=== PATIENT | male | born 1935 ===

== ENCOUNTER 2020-06-16 10:46 | Inpatient (IN) | payer MEDICARE ==
[~2020-06-16 10:46] MED LIST: HUM PROTHROMBIN CPLX IV SCH; [UNRECOGNIZED DRUG - OTHER] IV SCH
[2020-06-16] MEDS ORDERED: Electrolyte Replacement Protocol FS SCH (14:28)
[2020-06-16] MEDS ORDERED: Norepinephrine 8 MG/0.9% NS 250 ML IVPB PRN (14:28)
[2020-06-16] MEDS ORDERED: Sodium Chloride 0.9% 1,000 ML IV SCH (14:30)
[2020-06-16] MEDS ORDERED: Pantoprazole 40 MG VIAL IVP SCH (14:30)
[2020-06-16 14:49] LABS: SARS-CoV-2 NAA Rapid Test Not Detected (NotDetected)
[2020-06-16] MEDS ORDERED: Succinylcholine 200 MG/10 ml SYRINGE FS ONE (14:50)
[2020-06-16] MEDS ORDERED: Lidocaine 1% PF 5 ML VIAL ONE (14:50)
[2020-06-16] MEDS ORDERED: PROPOFOL 200 MG/20 ML VIAL ONE (14:50)
--- NOTE | 2020-06-16 15:16 | HP ---
CHIEF COMPLAINT: Transferred to our facility for management of hemorrhagic shock. HISTORY OF PRESENT ILLNESS: The patient is an 84-year-old male with past medical history of atrial fibrillation, on Eliquis; hypertension; and gout, who was sent to our facility from [facility] after presenting there with GI bleeding. The patient was in his usual state of health until 3 days ago when he started experiencing bloody bowel movements. He reported that his bowel movements were black in the beginning, but then became bloody. He felt weak today and was trying to measure his blood pressure at home, but could not get a number which prompted him to come to the ER. In the ED, the patient was found to be hypotensive and anemic with hemoglobin level of 5. He received 3 units of packed RBCs and started on vasopressors for hypotension. The patient was transferred to our emergency department. Upon arrival, he was on norepinephrine and epinephrine drips. His hemoglobin level was found to be 6. Massive transfusion protocol was initiated and the patient received 6 units of packed RBCs and 6 units of plasma, which led to improvement in his blood pressure. We were able to get him off the vasopressors. A bloody bowel movement was reported in the outside ER facility, but not in our facility. At this time, the patient is alert and oriented and appears to be stable. REVIEW OF SYSTEMS: Negative except as noted in HPI. PAST MEDICAL HISTORY: As noted above. SOCIAL HISTORY: The patient denies alcohol use, smoking, or illicit drug use. FAMILY HISTORY: Noncontributory for his current presentation. ALLERGIES: NO KNOWN DRUG ALLERGIES. PHYSICAL EXAMINATION: GENERAL: The patient is alert and oriented x3. HEENT: Head is normocephalic and atraumatic. Extraocular muscles are intact. NECK: Supple. Central line is present. CHEST: Clear to auscultation bilaterally. CARDIOVASCULAR: Revealed regular rate and rhythm. No murmurs, rubs, or gallops. ABDOMEN: Soft, nontender, nondistended. Bowel sounds are audible and a continuous systolic murmur is heard on the left side of the abdomen. NEUROLOGIC: Nonfocal. ASSESSMENT: 1. Hemorrhagic shock. 2. Acute gastrointestinal bleeding. 3. History of atrial fibrillation, on Eliquis. 4. History of gout. 5. History of Clostridium difficile infection recently. PLAN: The patient will be admitted to the CCU. He received 6 units of packed RBCs and 6 units of plasma and appears to be stable at this time. Continue resuscitation with normal saline at 100 mL/h until his blood pressure further stabilizes. Start Protonix bolus and drip. GI were consulted and the patient will undergo an EGD later today. SCDs for DVT prophylaxis. The patient also received Kcentra to reverse Eliquis. We will hold his home Eliquis at this time. Job ID: [id number] [facility]
[2020-06-16] MEDS ORDERED: Albuterol Sulfate 2.5 mg/0.5 ml Neb NEB SCH (16:00)
[2020-06-16] MEDS ORDERED: Fentanyl 100 MCG/2 ML VIAL ONE (16:04)
[2020-06-16 16:10] VITALS: BMI 35.2
[2020-06-16] MEDS ORDERED: Furosemide 40 MG/4 ML VIAL SLOW IVP SCH (17:00)
[2020-06-16] MEDS ORDERED: Vancomycin HCl 25 MG/ML Oral PO SCH (18:00)
--- NOTE | 2020-06-16 18:32 | CON ---
DATE OF CONSULTATION: REASON FOR CONSULTATION: GI hemorrhage. HISTORY OF PRESENT ILLNESS: Mr. Yates is an 84-year-old who was transferred to this hospital about 11 today from [place] where he presented with GI hemorrhage. Per him and his , who were both poor historians, he began to have some black stools a few days ago. It became more red today. He began to feel bad and went to the ER in [place]. He was found to be tachycardic and hypotensive, given 3 units of blood and placed on Levophed and epinephrine and transferred here. In talking with his , she states he has had 2 episodes like this in the past and was treated in [place], [place]. She is unsure of the diagnosis. She states one of those times, he was just given medicines in his doctor's office, but she does not recall blood transfusions or prior endoscopies. He apparently has had a colonoscopy about 2 years ago she thinks, and she thinks that was normal. In any event, he was on Eliquis reportedly, arrived here and he was in shock. A massive transfusion protocol was begun. It is reported that he received 12 units of blood. He also received Kcentra and 4 units FFP. He was weaned off his pressors. His hemoglobin was 6.9 on arrival here. By the time I saw him, he was stable. The nurses reported he had no bowel movements at all, that was at about 1 o'clock this afternoon. He has been started on a Protonix drip. Admission H and P indicates he received just 6 units of blood and 6 of plasma and that sounds more reasonable, but these records are not available as the computers are all down and the paper records are scattered. He denies any abdominal pain or complaints. PAST MEDICAL HISTORY: Atrial fibrillation, on Eliquis. Other medicines are unknown. His states he had a C. difficile infection recently and was on antibiotics. She does not recall if he still knows or not. She does not think he has been having diarrhea recently. PAST SURGICAL HISTORY: Unknown. SOCIAL HISTORY: Negative for alcohol, drugs, or tobacco. FAMILY HISTORY: Noncontributory. ALLERGIES: NONE KNOWN. PRESENT MEDICATIONS: 1. Furosemide 1 dose 40 mg. 2. Electrolyte replacement protocol. 3. Protonix 80 drip. He is on no IV fluids. PHYSICAL EXAMINATION: VITAL SIGNS: Pulse 74, blood pressure 140/82, and afebrile. T-max 99.2. GENERAL: He is confused. He is oriented to person only. He is in no distress. He is marixa complected. HEENT: Conjunctivae are pink. Sclerae are clear. LUNGS: Noted for rhonchi in the bases. HEART: Regular rate and rhythm. ABDOMEN: Protuberant, soft, nontender. EXTREMITIES: No edema. LABORATORY DATA: COVID negative here. No other labs presently available. ASSESSMENT: 1. Hemorrhagic shock, resolved. 2. Acute gastrointestinal bleed with melena for several days and more red blood today. 3. Status post 6 units of blood. 4. History of recent Clostridium difficile infection. 5. History of gout. RECOMMENDATIONS: 1. EGD now as he is resuscitated. 2. Needs stool for C. difficile. 3. We will get his labs. If he has further bleeding, would consider a CAT scan or lower endoscopy. We will follow along with you. ADDENDUM: He actually received 6 units FFP and 6 units of blood. Comprehensive metabolic profile at the outside facility yesterday was normal except for a BUN of 49 and creatinine of 1.5. Liver function tests normal. Albumin was 2.5 and protein was 4.3. At the outside facility, his hemoglobin was 5.7, white count of 15. INR was 1.6. Medical records from the outside facility indicate he was on allopurinol, amiodarone, Eliquis b.i.d., Cilostazol, colchicine probenecid, furosemide, lisinopril, metoprolol, and oral vancomycin. Medical records indicate he also has gout, hypertension. There are no notations of surgeries. Assessment is unchanged from my initial H and P. Definitely it seems like he is still on vancomycin. We will recheck a C difficile. His white count remains elevated. He has diarrhea. We will need to go ahead and get a CAT scan of his abdomen. It does not appear he has toxic megacolon. His lactic acid was normal at 1.4. It does not appear any troponins were obtained. Presently, he is stable for endoscopy. Job ID: [id number]
[2020-06-16 18:47] LABS: Hemoglobin 9.8 g/dL (14.0-18.0)
[2020-06-16 18:55] LABS: ALT (SGPT) 14 U/L (8-55); AST (SGOT) 23 U/L (5-34); Albumin 1.9 g/dL (3.4-4.8); Alkaline Phosphatase 42 U/L (40-110); Anion Gap 12 mmol/L (10-20); BUN (Urea Nitrogen) 46 mg/dL (8.4-25.7); Bilirubin, Total 0.7 mg/dL (0.2-1.2); Calc. Creatinine Clearance 46 mL/min (70-130); Calcium 6.4 mg/dL (7.8-10.44); Carbon Dioxide 11 mmol/L (23-31); Chloride 121 mmol/L (98-107); Globulin 1.7 g/dL (2.4-3.5); Glucose 181 mg/dL (83-110); Potassium 3.9 mmol/L (3.5-5.1); Protein, Total 3.6 g/dL (5.8-8.1); Sodium 140 mmol/L (136-145)
--- NOTE | 2020-06-16 19:18 | CON ---
DATE OF CONSULTATION: 06/16/2020 CONSULTING PHYSICIAN: Dr. Fields. REASON FOR CONSULTATION: Hypotension. HISTORY OF PRESENT ILLNESS: The patient is an 84-year-old male from [place], who presented there with lower gastrointestinal hemorrhage. Symptoms started about 4 days ago. He initially went to the [place] ER and was hypotensive. He got 3 units of blood there. He was placed on Levophed and epinephrine and subsequently transferred here, although he gets all of his care in [facility]. By the time he got into the ICU where I saw him, he had been weaned down to almost no Levophed. He had received a total of 12 minutes of blood and received Kcentra, 4 units of FFP and some platelets. It was presumed that he would go down for colonoscopy later. PAST MEDICAL HISTORY: 1. Atrial fibrillation, for which he takes Eliquis. 2. C difficile colitis. PAST SURGICAL HISTORY: Unknown. SOCIAL HISTORY: Nonsmoker. Does not consume alcohol. Denies illicit drugs. ALLERGIES: NONE. FAMILY MEDICAL HISTORY: Unremarkable. MEDICATIONS: Furosemide 40 mg daily. REVIEW OF SYSTEMS: Otherwise negative. PHYSICAL EXAMINATION: VITAL SIGNS: Temperature 98.2, pulse 74, respirations 18, blood pressure 130/63. GENERAL: He is awake and alert and in no distress. HEENT: Unremarkable. NECK: No adenopathy or JVD. LUNGS: Clear to auscultation. CARDIAC: S1 and S2. Irregularly irregular. ABDOMEN: Mildly tender to palpation in the lower left quadrant. EXTREMITIES: No clubbing, cyanosis, or edema. LABORATORY DATA: His labs from [place] were reviewed and are listed on the chart. His COVID test here was negative. ASSESSMENT: 1. Lower gastrointestinal bleeding. 2. Hypotension secondary to profound volume loss. PLAN: The patient has been given copious red blood cell transfusion. Additionally, he has been placed on IV Protonix. His H and H will be monitored. We will have to be happy to follow with you. Total time spent, 50 minutes. Job ID: [id number]
[2020-06-16] MEDS: Vancomycin HCl 25 MG/ML Oral PO SCH (19:57)
[2020-06-16 20:37] LABS: Anisocytosis SLIGHT = 6-15 cells (100X) (0-5/hpf); Band 49 % (5-11); Hemoglobin 6.9 g/dL (14.0-18.0); Lymphocytes 1 % (21-51); MDiff Complete? YES; Mean Corpuscular HGB CONC 32.8 g/dL (32.0-36.0); Mean Corpuscular Hemoglobin 30.7 pg (27.0-31.0); Mean Corpuscular Volume 93.5 fL (78.0-98.0); Mean Platelet Volume 7.8 fL (7.4-10.4); Monocytes 3 % (0-10); Neutrophil 47 % (42-75); Platelet Count 181 thou/uL (130-400); Platelet Morphology Comment Appears Adequate; Polychromasia MODERATE = 3-4 cells (100X) (0-2/hpf); RBC Distribution Width 16.2 % (11.5-14.5); Red Blood Cell (RBC) Count 2.24 mill/uL (4.70-6.10); Reflex for Review?? NO; White Blood Cell (WBC) Count 28.5 thou/uL (4.8-10.8)
[2020-06-16] MEDS ORDERED: Latanoprost 0.005% Ophth Soln 2.5 ml Bottle R EYE SCH (21:45)
[2020-06-16] MEDS: metroNIDAZOLE 500 MG in Premix Bag 1 BAG IVPB SCH (21:54)
[2020-06-16 23:46] LABS: Hemoglobin 8.6 g/dL (14.0-18.0)
[2020-06-17] MEDS ORDERED: Norepinephrine 8 MG/0.9% NS 250 ML IVPB PRN (00:05)
[2020-06-17] MEDS: Vancomycin HCl 25 MG/ML Oral PO SCH ×4 (01:16→20:15)
[2020-06-17] MEDS: Sodium Chloride 0.9% 1,000 ML IV SCH ×2 (03:59→08:14)
[2020-06-17] MEDS ORDERED: Pantoprazole 40 MG VIAL IVP SCH (04:00)
[2020-06-17 04:44] LABS: Hemoglobin 8.6 g/dL (14.0-18.0); Mean Corpuscular HGB CONC 34.6 g/dL (32.0-36.0); Mean Corpuscular Volume 89.6 fL (78.0-98.0); Mean Platelet Volume 7.5 fL (7.4-10.4); Platelet Count 95 thou/uL (130-400); RBC Distribution Width 14.7 % (11.5-14.5); Red Blood Cell (RBC) Count 2.79 mill/uL (4.70-6.10)
[2020-06-17 04:45] LABS: Band 14 % (5-11); Eosinophils 1 % (0-10); Lymphocytes 21 % (21-51); MDiff Complete? YES; Monocytes 1 % (0-10); Neutrophil 63 % (42-75); Nucleated RBC 1 % (0); Platelet Morphology Comment Appears Decreased
[2020-06-17 04:49] LABS: ALT (SGPT) 16 U/L (8-55); AST (SGOT) 26 U/L (5-34); Albumin 2.3 g/dL (3.4-4.8); Alkaline Phosphatase 44 U/L (40-110); Anion Gap 10 mmol/L (10-20); BUN (Urea Nitrogen) 44 mg/dL (8.4-25.7); Bilirubin, Total 1.1 mg/dL (0.2-1.2); Calc. Creatinine Clearance 49 mL/min (70-130); Calcium 6.9 mg/dL (7.8-10.44); Carbon Dioxide 17 mmol/L (23-31); Chloride 120 mmol/L (98-107); Globulin 1.7 g/dL (2.4-3.5); Glucose 84 mg/dL (83-110); Potassium 3.2 mmol/L (3.5-5.1); Sodium 144 mmol/L (136-145)
[2020-06-17] MEDS: metroNIDAZOLE 500 MG in Premix Bag 1 BAG IVPB SCH ×3 (05:16→22:59)
[2020-06-17] MEDS ORDERED: Potassium Chloride 40 MEQ in Premix Bag 1 BAG IVPB SCH (06:00)
--- NOTE | 2020-06-17 06:56 | OP ---
DATE OF PROCEDURE: 06/16/2020 PREPROCEDURE DIAGNOSES: 1. Gastrointestinal hemorrhage of unclear etiology. 2. Eliquis reversed. 3. Status post massive transfusion protocol, 6 units here and 3 units at outside facility. Hemoglobin unknown. Off pressors now. Normal INR. POSTPROCEDURE DIAGNOSES: 1. Normal esophagus. 2. Food obscuring the proximal quarter of the stomach in the fundus with food bolus that could not be removed. No blood or oozing from that. 3. Couple of hematin stains in the distal body, but no ulcers on forward or retroflexed views. 4. Normal duodenum with bile to the third portion. RECOMMENDATIONS: 1. Check the C difficile. 2. Get a CAT scan of the abdomen and pelvis as he has a history of C difficile, which he has been treated for before he came in. He does not look toxic, but this needs to be done once we confirm his renal function is normal. 3. Serial hemoglobins and hematocrits. 4. Change PPI to q.12. 5. He will need a colonoscopy at a later date, but not now and not tomorrow. ANESTHESIA: General endotracheal anesthesia. PROCEDURE IN DETAIL: After the patient was informed of the risks, benefits, and possible complications of endoscopy including perforation, bleeding, reaction to medication, and aspiration, informed consent was obtained. The patient was brought to the endoscopy suite, where he was intubated with rapid sequence induction. The endoscope was advanced into the esophagus, stomach, into second and third portions of the duodenum. The esophagus was normal. The stomach was notable for food in the proximal stomach, this could not be mobilized or irrigated away, distending the stomach fully. The GE junction looked normal on retroflexed views. There was no evidence of Ashlyn-Puag tear. There was no evidence of active clot or bleeding. We could not move the food bolus to visualize underneath it. The body of the stomach and antrum were normal. The incisura was normal. Retroflexion in the pylorus was normal. The duodenum was normal to the 4th portion with clear yellow bile. The scope was removed. The patient tolerated the procedure well. There were no complications. Job ID: [id number]
[2020-06-17] MEDS: Pantoprazole 40 MG VIAL IVP SCH ×2 (07:58→20:16)
[2020-06-17] MEDS ORDERED: FLU VACC QS2020-21(65YR UP)/PF 240 MCG/0.7 ML SYRINGE IM ONE (09:00)
--- NOTE | 2020-06-17 10:58 | PRG ---
DATE OF SERVICE: 06/17/2020 SUBJECTIVE: The patient has been hemodynamically stable. He had no significant findings from his colonoscopy. He is off the Levophed drip. OBJECTIVE: HEENT: Unremarkable. NECK: No adenopathy or JVD. LUNGS: Clear. CARDIAC: S1 and S2, regular. ABDOMEN: Soft. EXTREMITIES: No edema. LABORATORY DATA: Sodium 144, potassium 3.2, chloride 120, CO2 of 17, BUN 44, creatinine 1.5, glucose 84. White count 11, hematocrit 25, platelet count 95. ASSESSMENT: 1. Status post massive gastrointestinal bleeding while on Eliquis. 2. Status post massive transfusion. PLAN: The patient has been weaned off the Levophed. He can be transferred to the telemetry floor. No further pulmonary recs. Job ID: [id number]
--- NOTE | 2020-06-17 12:25 | CT ---
CT Abdomen Pelvis W Con HISTORY: Abdominal pain and GI bleed. COMPARISON: None. FINDINGS: Bilateral pleural effusions left slightly larger than right are noted. There is bibasilar a telectatic lung changes seen. The liver and spleen show no focal abnormalities. There is some minimal free fluid adjacent to the li joe and spleen. The pancreas and gallbladder regions are unremarkable. There is no significant periaortic or mesenteric adenopathy. There is some mild gaseous distention of the colon. No wall thic kening. No evidence for pneumatosis. Right and left adrenal glands and right and left kidneys are normal in size. CT of pelvis performed with contrast enhancement: Rock catheter is in place. There is some fluid pre sent within the rectosigmoid colon. No inflammatory change. No free fluid, adenopathy or mass. Review of osseous structures show marked arthritic changes of the spine. IMPRESSION: 1. Mild bilateral pleural effusions with bibasilar atelectasis. 2. No evidence of any colon wall thickening. There is some minimal fat stranding posterior to the lef t colon closer to the level the splenic flexure. This may just represent some fluid within the paracolic gutter as there is also some fluid adjacent to the spleen. No evidence of any colon wall th ickening or diverticular disease in this area.
[2020-06-17 12:35] LABS: CKMB 5.5 ng/mL (0-6.6)
--- NOTE | 2020-06-17 12:53 | PDOC.HOSPP ---
- Subjective Encounter Date: 06/17/20 Subjective: The patient is hemodynamically stable today. - Objective Vital Signs & Weight: Vital Signs (12 hours) Temp Pulse Ox 06/17/20 07:49 100 06/17/20 04:00 98.0 F 06/17/20 02:21 99 Weight Weight 229 lb 11.547 oz Most Recent Monitor Data Heart Rate from ECG 64 NIBP 107/51 NIBP BP-Mean 69 Respiration from ECG 15 SpO2 100 I&O: 06/16/20 06/17/20 06/18/20 06:59 06:59 06:59 Intake Total 995.2 75.2 Output Total 2355 100 Balance -1359.8 -24.8 Result Diagrams: 06/17/20 04:08 06/17/20 04:08 Hospitalist ROS - Medication Medications: Active Medications Generic Name Dose Route Start Last Admin Trade Name Freq PRN Reason Stop Dose Admin Metronidazole 500 mg/ Device 100 mls @ 100 mls/hr 06/16/20 22:00 06/17/20 05:16 IVPB 100 mls Q8HR JUAN Administration Sodium Chloride 1,000 mls @ 75 mls/hr 06/17/20 04:00 06/17/20 08:14 Normal Saline 0.9% IV 1,000 mls .[id number] JUAN Administration Pantoprazole Sodium 40 mg 06/17/20 21:00 06/17/20 07:58 Pantoprazole 40 Mg Vial IVP 40 mg Q12HR JUAN Administration Sodium Chloride 10 ml 06/17/20 09:00 06/17/20 08:00 Flush - Normal Saline 10 Ml Syringe IVF 10 ml Q12HR JUAN Administration Vancomycin HCl 125 mg 06/16/20 20:00 06/17/20 07:59 Vancomycin Hcl 25 Mg/Ml Oral PO 125 mg 0200,0800,1400,2000 JUAN Administration Hospitalist Exam Vitals: Vital Signs (12 hours) Temp Pulse Ox 06/17/20 07:49 100 06/17/20 04:00 98.0 F 06/17/20 02:21 99 Weight Weight 229 lb 11.547 oz Most Recent Monitor Data Heart Rate from ECG 64 NIBP 107/51 NIBP BP-Mean 69 Respiration from ECG 15 SpO2 100 General Appearance: awake alert ENT: normocephalic atraumatic Neck: supple Heart: RRR, no murmur Respiratory: CTAB, no wheezes, no rales Neurological: cranial nerve grossly intact Hosp A/P (1) Hemorrhagic shock Code(s): R57.8 - OTHER SHOCK Status: Acute (2) Anemia due to acute blood loss Code(s): D62 - ACUTE POSTHEMORRHAGIC ANEMIA Status: Acute (3) GI bleeding Code(s): K92.2 - GASTROINTESTINAL HEMORRHAGE, UNSPECIFIED Status: Acute (4) C. difficile colitis Code(s): A04.72 - ENTEROCOLITIS D/T CLOSTRIDIUM DIFFICILE, NOT SPCF RECUR Status: Acute (5) Gout Code(s): M10.9 - GOUT, UNSPECIFIED Status: Acute - Plan Status post transfusion with a total of 9 units of packed RBCs, 6 units of plasma and monitor platelets. H&H currently stable. Status post EGD which did not show any acute bleeding. CT scan of the abdomen and pelvis did not reveal any significant abnormalities. The patient is on metronidazole and oral vancomycin for C. difficile. GI recommended colonoscopy at a later date.
--- NOTE | 2020-06-17 17:21 | PRG ---
DATE OF SERVICE: 06/17/2020 REASON FOR CONSULTATION: Hypotension and GI bleeding. SUBJECTIVE: The patient was admitted to the hospital yesterday with severe hypotension and significant anemia concerning for massive GI blood loss. He subsequently underwent emergent upper endoscopy, which showed retained food within the stomach obscuring the gastric fundus as well as little bit of blood clots within the distal body, but no evidence of GI bleeding in the upper GI tract. Since the upper endoscopy, he has not had any bowel movements at all nor has he had any acute events or problems overnight per nursing staff. The patient does remain confused and what is presumably his baseline demented state. Currently, alert and oriented x2. Otherwise, he denies any nausea, vomiting, fevers, chills, hematemesis, melena, or hematochezia. OBJECTIVE: VITAL SIGNS: Temperature 97.9, pulse 75, blood pressure 125/60, respiratory rate 24, saturating 100% on room air. GENERAL: The patient was lying in bed, in no acute distress. Alert and oriented x2. CARDIOVASCULAR: Regular rate and rhythm. RESPIRATORY: Clear to auscultation bilaterally. ABDOMEN: Normoactive bowel sounds. Soft, nontender, nondistended. EXTREMITIES: No cyanosis, clubbing, or edema. LABORATORY DATA: CBC with a white blood cell count of 11, hemoglobin 8.6, hematocrit 25, platelets 95. Chemistry with a sodium of 144, potassium 3.2, chloride 120, CO2 of 17, BUN 44, creatinine 1.55, glucose 84, AST 26, ALT 16, alkaline phosphatase 44, total bilirubin 1.1. IMAGING DATA: CT scan of the abdomen/pelvis was obtained on June 17, 2020, which showed bilateral pleural effusions as well as a minimal amount of free fluid within the abdomen near the hepatic and splenic flexures. There was mild gaseous distention of the colon, but otherwise no significant abnormalities. He also underwent upper endoscopy on June 16, 2020, which showed normal esophagus, food obscuring the proximal quarter of the stomach in the fundus with inadequate visualization of the underlying mucosa, but no blood or oozing was seen from underneath. Some hematin stains were seen in the distal gastric body, but no evidence of ulcers or erosions that would contribute toward it and the duodenum was completely normal to the third portion. ASSESSMENT AND PLAN: The patient is an 84-year-old male with past medical history of atrial fibrillation, on Eliquis as an outpatient as well as a recent diagnosis of Clostridium difficile infection/colitis, presenting with hemorrhagic anemia possibly from a gastrointestinal bleeding source. Gastrointestinal bleedin. The patient was initially transferred to the hospital from [place] where per chart review, he was having significant gastrointestinal hemorrhage with the appearance of hematochezia/bright red blood per rectum. He was found to be tachycardic and hypotensive in the ER there with subsequent transfer to [facility] for further evaluation. He subsequently underwent massive bleeding infusion protocol and was placed on pressor support, for which, the patient has been weaned off today. He also underwent upper endoscopy yesterday with no clear significant findings of gastrointestinal bleeding during that evaluation. At this time, the origin of his bright red blood per rectum is unknown with a recent colonoscopy performed by an outpatient GI physician in [place] within the last few years that did not show any abnormalities. He does have a slightly downtrending H and H over the last 24 to 48 hours, but per nursing staff, has not had any evidence of clinical overt gastrointestinal bleeding. RECOMMENDATIONS: 1. Would continue to trend his H and H and transfuse as necessary to maintain an H and H of 7/21. 2. Continue to monitor clinically for signs of active GI bleeding. 3. If the patient continues to have a downtrending H and H, I would consider repeat upper endoscopy and colonoscopy for further evaluation. 4. Would continue to avoid any anticoagulation in this patient and/or NSAIDs. Clostridium difficile infection: 1. The patient is presenting with a recent diagnosis of Clostridium difficile colitis, for which, the patient was placed on oral vancomycin. Currently responding to current management. RECOMMENDATIONS: 1. Continue oral vancomycin at the current dosing. We will continue to follow. Please call with any questions. Job ID: [id number]
[2020-06-17] MEDS ORDERED: Pantoprazole 40 MG VIAL ONE (20:13)
[2020-06-17] MEDS: Furosemide 40 MG/4 ML VIAL SLOW IVP SCH (20:15)
[2020-06-17] MEDS: Latanoprost 0.005% Ophth Soln 2.5 ml Bottle R EYE SCH (20:16)
[2020-06-17 22:39] LABS: CKMB 4.6 ng/mL (0-6.6)
[2020-06-18] MEDS: Vancomycin HCl 25 MG/ML Oral PO SCH ×4 (02:35→20:39)
[2020-06-18] MEDS: metroNIDAZOLE 500 MG in Premix Bag 1 BAG IVPB SCH ×2 (05:02→14:36)
[2020-06-18 05:18] LABS: #Eosinphils 0.2 thou/uL (0.0-0.7); #Lymphocytes 1.2 thou/uL (1.20-3.40); #Neutrophils 6.2 thou/uL (1.40-6.50); %Basophils 0.1 % (0.0-1.0); %Eosinophils 2.1 % (0.0-10.0); %Lymphocytes 13.7 % (21.0-51.0); %Monocytes 11.9 % (0.0-10.0); %Neutrophils 72.2 % (42.0-75.0); Hemoglobin 9.5 g/dL (14.0-18.0); Mean Corpuscular HGB CONC 35.4 g/dL (32.0-36.0); Mean Corpuscular Hemoglobin 32.3 pg (27.0-31.0); Mean Corpuscular Volume 91.2 fL (78.0-98.0); Mean Platelet Volume 7.1 fL (7.4-10.4); Platelet Count 96 thou/uL (130-400); RBC Distribution Width 14.7 % (11.5-14.5); Red Blood Cell (RBC) Count 2.93 mill/uL (4.70-6.10); White Blood Cell (WBC) Count 8.6 thou/uL (4.8-10.8)
[2020-06-18 05:28] LABS: ALT (SGPT) 16 U/L (8-55); AST (SGOT) 27 U/L (5-34); Albumin 2.5 g/dL (3.4-4.8); Alkaline Phosphatase 50 U/L (40-110); Anion Gap 11 mmol/L (10-20); BUN (Urea Nitrogen) 30 mg/dL (8.4-25.7); Calc. Creatinine Clearance 80 mL/min (70-130); Calcium 7.4 mg/dL (7.8-10.44); Carbon Dioxide 20 mmol/L (23-31); Chloride 117 mmol/L (98-107); Globulin 1.9 g/dL (2.4-3.5); Glucose 83 mg/dL (83-110); Protein, Total 4.4 g/dL (5.8-8.1); Sodium 145 mmol/L (136-145)
[2020-06-18 06:08] LABS: Potassium 2.9 mmol/L (3.5-5.1)
[2020-06-18] MEDS: Potassium Chloride 20 MEQ TAB PO SCH ×2 (06:34→10:26)
[2020-06-18] MEDS ORDERED: Magnesium 2 GM/50 ML 2 GM in Premix Bag 1 BAG IVPB SCH (07:45)
[2020-06-18] MEDS: Furosemide 40 MG/4 ML VIAL SLOW IVP SCH ×2 (09:22→20:38)
[2020-06-18] MEDS: Pantoprazole 40 MG VIAL IVP SCH (09:22)
[2020-06-18] MEDS ORDERED: Sodium Chloride 0.65% Nasal 44 ML BOT EA NARE PRN (15:31)
[2020-06-18 17:25] LABS: Potassium 3.7 mmol/L (3.5-5.1)
--- NOTE | 2020-06-18 18:28 | PDOC.HOSPP ---
- Subjective Encounter Date: 06/18/20 Subjective: Patient reports he is feeling well. He has no complaints today. - Objective Vital Signs & Weight: Vital Signs (12 hours) Temp Pulse Resp BP BP BP BP 06/18/20 16:06 98.0 F 65 16 143/67 H 06/18/20 13:36 177/78 H 164/75 H 06/18/20 12:00 98.3 F 67 18 149/67 H 06/18/20 08:42 98.2 F 80 20 136/60 06/18/20 08:00 Pulse Ox 06/18/20 16:06 98 06/18/20 13:36 06/18/20 12:00 97 06/18/20 08:42 100 06/18/20 08:00 100 Weight Weight 233 lb 6.4 oz Most Recent Monitor Data Heart Rate from ECG 67 NIBP 140/59 NIBP BP-Mean 86 Respiration from ECG 24 SpO2 100 I&O: 06/17/20 06/18/20 06/19/20 06:59 06:59 06:59 Intake Total 995.2 4790.8 960 Output Total 2355 3700 2150 Balance -1359.8 1090.8 -1190 Result Diagrams: 06/18/20 04:49 06/18/20 17:00 Hospitalist ROS - Medication Medications: Active Medications Generic Name Dose Route Start Last Admin Trade Name Freq PRN Reason Stop Dose Admin Furosemide 40 mg 06/17/20 21:00 06/18/20 09:22 Furosemide 40 Mg/4 Ml Vial SLOW IVP 40 mg BID JUAN Administration Metronidazole 500 mg/ Device 100 mls @ 100 mls/hr 06/16/20 22:00 06/18/20 14:36 IVPB 100 mls Q8HR JUAN Administration Latanoprost 1 drop 06/17/20 21:00 06/17/20 20:16 Latanoprost 0.005% Ophth Soln 2.5 Ml Bottle R EYE 1 drop HS JUAN Administration Pantoprazole Sodium 40 mg 06/17/20 21:00 06/18/20 09:22 Pantoprazole 40 Mg Vial IVP 40 mg Q12HR JUAN Administration Sodium Chloride 10 ml 06/17/20 09:00 06/18/20 09:23 Flush - Normal Saline 10 Ml Syringe IVF 10 ml Q12HR JUAN Administration Sodium Chloride 1 ml 06/18/20 15:31 06/18/20 16:08 Sodium Chloride 0.65% Nasal 44 Ml Bot EA NARE 1 spray TIDPRN PRN Administration Nasal Congestion Vancomycin HCl 125 mg 06/16/20 20:00 06/18/20 14:52 Vancomycin Hcl 25 Mg/Ml Oral PO Not Given 0200,0800,1400,2000 [facility] Hospitalist Exam Vitals: Vital Signs (12 hours) Temp Pulse Resp BP BP BP BP 06/18/20 16:06 98.0 F 65 16 143/67 H 06/18/20 13:36 177/78 H 164/75 H 06/18/20 12:00 98.3 F 67 18 149/67 H 06/18/20 08:42 98.2 F 80 20 136/60 06/18/20 08:00 Pulse Ox 06/18/20 16:06 98 06/18/20 13:36 06/18/20 12:00 97 06/18/20 08:42 100 06/18/20 08:00 100 Weight Weight 233 lb 6.4 oz Most Recent Monitor Data Heart Rate from ECG 67 NIBP 140/59 NIBP BP-Mean 86 Respiration from ECG 24 SpO2 100 General Appearance: NAD, awake alert Heart: RRR, no gallops, no rubs, II/IV Respiratory: CTAB, no wheezes, no rales, no ronchi, normal chest expansion, no tachypnea, normal percussion Gastrointestinal: soft, non-tender, non-distended, normal bowel sounds, no pal pable masses, no hepatomegaly, no splenomegaly, no bruit Extremities: 1+ LE edema Extremities - other findings: Chronic stasis dermatitis changes in the lower extremities Neurological: no focal deficits Musculoskeletal: generalized weakness Psychiatric: normal affect, normal behavior Hosp A/P (1) Anemia due to acute blood loss Code(s): D62 - ACUTE POSTHEMORRHAGIC ANEMIA Status: Acute (2) GI bleeding Code(s): K92.2 - GASTROINTESTINAL HEMORRHAGE, UNSPECIFIED Status: Acute (3) Gout Code(s): M10.9 - GOUT, UNSPECIFIED Status: Acute (4) Hemorrhagic shock Code(s): R57.8 - OTHER SHOCK Status: Acute (5) C. difficile colitis Code(s): A04.72 - ENTEROCOLITIS D/T CLOSTRIDIUM DIFFICILE, NOT SPCF RECUR Status: Acute (6) PAF (paroxysmal atrial fibrillation) Code(s): I48.0 - PAROXYSMAL ATRIAL FIBRILLATION Status: Acute (7) Hypertension Code(s): I10 - ESSENTIAL (PRIMARY) HYPERTENSION Status: Acute (8) Peripheral vascular disease Code(s): I73.9 - PERIPHERAL VASCULAR DISEASE, UNSPECIFIED Status: Acute (9) Acute kidney injury Code(s): N17.9 - ACUTE KIDNEY FAILURE, UNSPECIFIED Status: Acute - Plan GI bleeding: Appears as though the patient was likely on Eliquis for history of atrial fibri llation. Patient presented with significant lower GI bleed with hematochezia. Upper endoscopy was unremarkable. Patient had a history of relatively recent negative colonoscopy. Appears to be stabilized at this time. Continuing to hold anticoagulation. Appreciate GI consultation. History of atrial fibrillation: Patient has his Eliquis currently being held. Patient presented with shock and his beta-blockers were discontinued. We will likely need to resume those tomorrow if he remains stable. Acute blood loss anemia: Patient required a total of 6 units of red blood cells on 06/16/2020. He also received 3 units of FFP and 3 units of liquid plasma and 1 unit of platelets. Currently his hemoglobin appears to be holding steady with no further evidence of bleeding. C. difficile colitis: Patient had a recent positive test prior to admission. He continues on vancomycin to complete a 14-day course. Repeat testing here was negative. Suspect he does not require further isolation given the negative test. History of gout: Continue his home dose of allopurinol at 300 mg daily. Hypertension: Again the patient presented with shock due to hypovolemia and anemia. We will resume blood pressure medicines tomorrow if he remains stable. Peripheral vascular disease: Patient appears to have been on cilostazol. We will consider resuming that at some point prior to discharge. Hypokalemia: Patient required potassium supplement on 04/17/2021. Indeterminate troponins: Given the patient's advanced age and renal function this likely is his normal baseline and does not represent an ischemic situation. Could represent demand ischemia due to severe anemia and hypovolemic shock. Did not follow a physiologic pattern as one would expect if that were the case. Acute kidney injury: Patient's GFR was in the 40s at presentation. With treatment of the underlying anemia and bleed it has increased into the 70s. We do not have baseline numbers to know what he runs chronically.
--- NOTE | 2020-06-18 19:02 | PRG ---
DATE OF SERVICE: 06/18/2020 SUBJECTIVE: The patient feels fine without any complaint. He tolerated diet without nausea or vomiting. There is some vague lower abdominal discomfort, but no significant pain. No bleeding or bloody stool noted. PHYSICAL EXAMINATION: VITAL SIGNS: Temperature is 98.0, blood pressure 143/67, and pulse of 65. GENERAL: He is alert and conversant without distress. HEENT: Show anicteric sclerae. CV: Shows normal S1 and S2. Regular rate and rhythm. CHEST: Shows a breath sounds. ABDOMEN: Protuberant, but soft. No distention. No tympany. No tenderness. He has active bowel sounds. EXTREMITIES: Show no edema. LABORATORY DATA: WBCs 8.6, hemoglobin 9.5 (8.6 yesterday), and platelet count of 96. Sodium 145, potassium , and creatinine 0.99. ASSESSMENT: 1. Recent severe lower gastrointestinal bleed. The patient reportedly had a negative colonoscopy in [place] two years ago. Thus, only upper endoscopy was performed, which did not show any source of bleeding. I suspect that he had a large diverticular bleed that has since resolved. 2. Anemia from acute blood loss, H and H are stable and slightly improved. 3. Recent Clostridium difficile infection, treated. No diarrhea and repeat Clostridium difficile antigen and toxin were negative this admission. RECOMMENDATION: 1. We will change pantoprazole to 40 mg daily given erosions noted on recent EGD. 2. Continue vancomycin 125 mg q.i.d. x10 days since we do not know the start date of his therapy prior to transfer. 3. Discontinue IV metronidazole. 4. The patient can be discharged tomorrow if he continues to do well without any signs of bleeding. Job ID: [id number]
[2020-06-18] MEDS: Famotidine 20 MG TAB PO SCH (20:39)
[2020-06-18] MEDS: Latanoprost 0.005% Ophth Soln 2.5 ml Bottle R EYE SCH (20:39)
[2020-06-19] MEDS: Vancomycin HCl 25 MG/ML Oral PO SCH ×3 (01:04→13:26)
[2020-06-19 05:01] LABS: ALT (SGPT) 18 U/L (8-55); AST (SGOT) 26 U/L (5-34); Albumin 2.7 g/dL (3.4-4.8); Alkaline Phosphatase 53 U/L (40-110); Anion Gap 9 mmol/L (10-20); BUN (Urea Nitrogen) 20 mg/dL (8.4-25.7); Bilirubin, Total 1.3 mg/dL (0.2-1.2); Calc. Creatinine Clearance 102 mL/min (70-130); Calcium 7.8 mg/dL (7.8-10.44); Carbon Dioxide 25 mmol/L (23-31); Chloride 114 mmol/L (98-107); Glucose 92 mg/dL (83-110); Magnesium 1.5 mg/dL (1.6-2.6); Potassium 3.5 mmol/L (3.5-5.1); Protein, Total 4.7 g/dL (5.8-8.1); Sodium 144 mmol/L (136-145)
[2020-06-19 05:26] LABS: Band 8 % (5-11); Eosinophils 2 % (0-10); Hemoglobin 9.6 g/dL (14.0-18.0); Lymphocytes 14 % (21-51); MDiff Complete? YES; Mean Corpuscular HGB CONC 34.2 g/dL (32.0-36.0); Mean Corpuscular Hemoglobin 30.9 pg (27.0-31.0); Mean Corpuscular Volume 90.2 fL (78.0-98.0); Mean Platelet Volume 7.3 fL (7.4-10.4); Monocytes 12 % (0-10); Neutrophil 64 % (42-75); Nucleated RBC 1 % (0); Platelet Count 123 thou/uL (130-400); White Blood Cell (WBC) Count 10.3 thou/uL (4.8-10.8)
[2020-06-19] MEDS ORDERED: Magnesium 2 GM/50 ML 2 GM in Premix Bag 1 BAG IVPB SCH ×2 (06:15→09:00)
[2020-06-19] MEDS ORDERED: Potassium Chloride 20 MEQ TAB PO SCH (06:30)
[2020-06-19] MEDS: Famotidine 20 MG TAB PO SCH (08:27)
[2020-06-19] MEDS: Furosemide 40 MG/4 ML VIAL SLOW IVP SCH (08:27)
[2020-06-19 08:38] VITALS: TEMP 98.6
[2020-06-19] MEDS ORDERED: Magnesium Sulfate 2 GM in Sodium Chloride 0.9% 100 ML IVPB SCH (08:45)
[2020-06-19 13:27] VITALS: BP 170/75
--- NOTE | 2020-06-20 05:16 | PQF ---
Dear : Jose Garber Date 06/20/2020 Please exercise your independent, professional judgment in responding to the clarification form. Clinical indicators are provided on the bottom of this form for your review Can you please further clarify the etiology of GI Bleeding? Please check appropriate box(es): [ ] Diverticular bleeding [ ] Clostridium difficile infection [ ] Other diagnosis please specify [ ] Unable to determine Physician Signature: Date/Time: For continuity of documentation, please document condition throughout progress notes and discharge summary. Thank You. To be completed by CDI/Coding staff for physician review: Present Clinical Indicators - Signs / Symptoms / Labs Results and Location in Medical Record [ x ] Recent severe lower GI Bleed PN 2 pg.1 [ x ] I suspect that he had a large diverticular bleed that has since resolve PN 2 pg.1 [ x ] Recent Clostridium difficile infection, treated PN 2 pg.1 [ x ] Acute GI bleed with melena Consult pg.2 [ x ] Gastrointestinal hemorrhage of unclear etiology OP report pg.1 [ x ] Presented with significant lower GI bleed with hematochezia Hospitalist PN pg.5 2 Present Risk Factors Results and Location in Medical Record [ x ] 84 years old H and P pg.1 [ x ] Hemorrhagic shock H and P pg.1 [ x ] C difficile colitis H and P pg.1 Present Treatments Results and Location in Medical Record [ x ] IV Fluids MAR [ x ] Blood transfusion Dr. Quinteros [ x ] Surgery Consult MAR [ x ] Levophed IV MAR [ x ] EGD OP report CDS/Research Development Director Signature: Wing Gamez Phone #: ext [phone] Date 06/20/2020 This is a permanent part of the Medical Record [facility]
== END 2020-06-19 14:54 | disposition home or self-care (01) | DRG 377 ==
LOC: ERS 10:46 → CCU 11:20 → 2NO 06-17 21:13
PROVIDERS: ADMIT Internal Medicine; ATTEND Internal Medicine
PROC: 3E033XZ Introduction of Vasopressor into Peripheral Vein, Percutaneous Approach (ICD-10-PCS; 2020-06-16)
PROC: 30233L1 Transfusion of Nonautologous Fresh Plasma into Peripheral Vein, Percutaneous Approach (ICD-10-PCS; 2020-06-16)
PROC: 30233N1 Transfusion of Nonautologous Red Blood Cells into Peripheral Vein, Percutaneous Approach (ICD-10-PCS; 2020-06-16)
PROC: 30233R1 Transfusion of Nonautologous Platelets into Peripheral Vein, Percutaneous Approach (ICD-10-PCS; 2020-06-16)
PROC: 30233K1 Transfusion of Nonautologous Frozen Plasma into Peripheral Vein, Percutaneous Approach (ICD-10-PCS; 2020-06-16)
PROC: 0DJ08ZZ Inspection of Upper Intestinal Tract, Via Natural or Artificial Opening Endoscopic (ICD-10-PCS; principal; 2020-06-17)
DX: K92.2 Gastrointestinal hemorrhage, unspecified (principal); R57.8 Other shock; D62 Acute posthemorrhagic anemia; A04.72 Enterocolitis due to Clostridium difficile, not specified as recurrent; N17.9 Acute kidney failure, unspecified; I24.8 Other forms of acute ischemic heart disease; Z66 Do not resuscitate; Z20.822 Contact with and (suspected) exposure to COVID-19; I10 Essential (primary) hypertension; M10.9 Gout, unspecified; I48.0 Paroxysmal atrial fibrillation; I73.9 Peripheral vascular disease, unspecified; E87.6 Hypokalemia; Z79.01 Long term (current) use of anticoagulants; Z79.899 Other long term (current) drug therapy
CPT/HCPCS: 0240U; 36415; 36430; 74177; 80053; 82553; 83735; 84484; 85007; 85014; 85018; 85027; 86850; 86900; 86901; 87324; 87449; 94640; 96365; 96366; 96368; 96375; C9113; C9132; J1940; J2704; J3010; J3475; J3480; J3490; J7611; P9016; P9035; P9048; P9059